=== PATIENT | male | born 1970 | race Caucasian/White ===

== ENCOUNTER → 2023-05-06 09:27 | Outpatient (CLI) | payer BC, SELFPAY ==
[2023-05-06 10:55] LABS: Hematocrit 42.8 % (41-53); Hemoglobin 14.4 g/dL (13.5-17.5); Mean Corpuscular HGB Conc 33.8 % (30-36); Mean Corpuscular Hemoglobin 29.4 PG (26-34); Mean Corpuscular Volume 87.1 fL (80-100); Platelet Count 280 X10^3/uL (150-400); Red Blood Cell Count 4.91 X10^6/uL (4.5-5.9); Red Cell Distribution Width 14.2 % (11.6-14.8); White Blood Cell Count 5.5 X10^3/uL (4.5-11.0)
[2023-05-06 11:42] LABS: Luteinizing Hormone 1.43 mIU/mL
[2023-05-06 11:55] LABS: Prostate Specific Antigen Scrn 1.28 ng/mL (0.1-4.0)
[2023-05-06 11:57] LABS: Testosterone 434 ng/dL (71.8-623)
[2023-05-11 15:43] LABS: Estriol 0.1 ng/mL (Not Estab.)
== END ==
PROVIDERS: PCP Registered Nurse; Referring Provider Nurse Practitioner Adult Health; Visit Provider Nurse Practitioner Adult Health
DX: E29.1 Testicular hypofunction (principal); R53.83 Other fatigue
CPT/HCPCS: 36415; 82677; 83002; 84403; 85027; G0103

== ENCOUNTER → 2023-07-31 14:48 | Outpatient (CLI) | payer BC, SELFPAY ==
--- NOTE | 2023-07-31 | DI.RAD.S_ITS ---
PROCEDURE: XR CHEST 2V INDICATIONS: acute cough TECHNIQUE: 2 views of the chest were acquired. COMPARISON: None. FINDINGS: Surgical changes and devices: None. Lungs and pleura: Lungs are clear. No pleural effusions or pneumothorax. Mediastinum: Mediastinal contours are normal. Heart size is normal. Bones and chest wall: No suspicious bony abnormalities. Soft tissues appear unremarkable. IMPRESSION: No acute cardiopulmonary process. Dictated by: Rojas Shell M.D. on 07/31/2023 at 17:07 Approved by: Rojas Shell M.D. on 07/31/2023 at 17:08
== END ==
PROVIDERS: PCP Registered Nurse; Referring Provider Registered Nurse; Visit Provider Registered Nurse
DX: R05.1 Acute cough (principal)
CPT/HCPCS: 71046

== ENCOUNTER 2023-08-03 16:04 | Emergency (ER) | payer BC, SELFPAY ==
[2023-08-03] VITALS (20 sets, daily range): BP systolic 139–195; BP diastolic 67–98; PULSE 81–109; RESP 13–30; TEMP 36.4; O2SAT 95–98
--- NOTE | 2023-08-03 16:11 | DI.CT.S_ITS ---
PROCEDURE: CT HEAD/BRAIN WO CON INDICATIONS: altered mental status, found on floor TECHNIQUE: Noncontrast 4.5 mm thick angled axial sections acquired from the foramen magnum to the vertex, with coronal and sagittal reformats. For radiation dose reduction, the following was used: automated exposure control, adjustment of mA and/or kV according to patient size. COMPARISON: [facility], CT, CT CERVICAL SPINE WO CON, 08/03/2023, 16:28. FINDINGS: Image quality: Diagnostic. CSF spaces: Basal cisterns are patent. No extra-axial fluid collections. Ventricles are normal in size and shape. Brain: No midline shift. No intracranial masses or hemorrhage. Viveros-white matter interface is normal. Skull and face: Calvarium and visualized facial bones are intact, without suspicious lesions. Sinuses: Visualized sinuses demonstrates minimal fluid within the maxillary sinuses.. IMPRESSION: No acute intracranial pathology. Dictated by: Sri Jimenes M.D. on 08/03/2023 at 17:01 Approved by: Sri Jimenes M.D. on 08/03/2023 at 17:02
--- NOTE | 2023-08-03 16:12 | DI.CT.S_ITS ---
PROCEDURE: CT CERVICAL SPINE WO CON INDICATIONS: altered mental status, found on floor TECHNIQUE: Noncontrast 3 mm thick sections acquired from the skull base to the T4 level. Sagittal and coronal reformats were then constructed. For radiation dose reduction, the following was used: automated exposure control, adjustment of mA and/or kV according to patient size. COMPARISON: None. FINDINGS: Image quality: Excellent. Bones: No fractures or dislocations. Visualized superior ribs are intact. There is reversal cervical curvature with apex at C5-6. Multilevel moderate to severe disc space narrowing most severe at C5-6. Soft tissues: Prevertebral soft tissues are normal in thickness. No paravertebral hematomas. No apical pneumothoraces. IMPRESSION: Multilevel degenerative changes without visualized fracture. Dictated by: Sri Jimenes M.D. on 08/03/2023 at 17:02 Approved by: Sri Jimenes M.D. on 08/03/2023 at 17:03
[2023-08-03 16:27] LABS: Add Manual Diff / Slide Review NO; Basophils Absolute Auto 100 /uL (0-100); Basophils Percent Auto 0.6 % (0-2); Eosinophils Absolute Auto 100 /uL (0-450); Eosinophils Percent Auto 1.5 % (2-4); Hematocrit 44.5 % (41-53); Hemoglobin 15.1 g/dL (13.5-17.5); Lymphocytes Absolute Auto 2600 /uL (1100-4500); Lymphocytes Percent Auto 31.5 % (25-40); Mean Corpuscular Hemoglobin 29.5 PG (26-34); Mean Corpuscular Volume 86.8 fL (80-100); Monocytes Absolute Auto 500 /uL (0-900); Monocytes Percent Auto 5.8 % (3-14); Neutrophils Absolute Auto 4900 /uL (1500-7000); Neutrophils Percent Auto 60.6 % (50-75); Platelet Count 372 X10^3/uL (150-400); Red Blood Cell Count 5.13 X10^6/uL (4.5-5.9); Red Cell Distribution Width 13.6 % (11.6-14.8); White Blood Cell Count 8.1 X10^3/uL (4.5-11.0)
--- NOTE | 2023-08-03 16:27 | PC.NURSE ---
Patient's requested to not give the patient a CT at this time. The expressed that the patient be allowed to wait for a little bit so that he doesn't freak out
[2023-08-03 16:28] LABS: Prothrombin Time 10.9 SECONDS (9.4-12.5)
[2023-08-03 16:30] LABS: PTT Partial Thromboplastin Tim 30 SECONDS (25.1-36.5)
--- NOTE | 2023-08-03 16:30 | PC.NURSE ---
patient is on a therapy program being seen by a provider for. He took medication for the last round of his 2 course of treatment. He told his that this was the last time he was taking it and would not be taking it after this. The states that he has never had a bad reaction to this medication. She could not state how much the patient took.
[2023-08-03 16:34] LABS: Acetaminophen < 10 ug/mL (10-30); Alanine Aminotransferase 25 IU/L (<50); Albumin 4.8 g/dL (3.5-5.0); Albumin Globulin Ratio 1.2 (1.0-2.8); Alkaline Phosphatase 75 U/L (38-126); Aspartate Aminotransferase 32 IU/L (17-59); BUN Creatinine Ratio 17.6 (6-22); Bilirubin Total 0.5 mg/dL (0.2-1.3); Blood Urea Nitrogen 19 mg/dL (9-20); Calcium 9.4 mg/dL (8.4-10.2); Carbon Dioxide 22 mmol/L (22-32); Chloride 106 mmol/L (98-107); Estimated Glomerular Filt Rate > 60 mL/min (>60); Ethanol (ETOH) < 10 mg/dL; Globulin 3.9 g/dL (1.7-4.1); Glucose 116 mg/dL (70-100); HEMOLYSIS 35 (0-50); Lactate (Lactic Acid) 3.5 mmol/L (0.7-2.1); Potassium 3.7 mmol/L (3.4-5.1); Salicylate < 1.0 mg/dL (<20); Sodium 141 mmol/L (137-145); Total Protein 8.7 g/dL (6.3-8.2)
--- NOTE | 2023-08-03 16:34 | PC.NURSE ---
Called Poison Control: Discussed case. they recommend beyond what is already ordered: CK/isoenzymes. they state effects = Sedation, resp depression, restlessness, tachycardia, anxiety, hallucinations, hyertonicity. Can be hyertensive followed by hypotensive. No ekg changes. Treat symptomatically but encouraged benzodiazepines for above. No specific cardiac, hepatic or renal toxicity. Peak plasma concentrations are 120 min. Expect symptoms for at least that duration. Suggest watching until baseline mental status.
[2023-08-03 16:50] LABS: Prolactin 29.5 ng/mL (3.7-17.9)
--- NOTE | 2023-08-03 16:57 | PC.NURSE ---
patient's declined blood draw and asked to talk to the doctor before doing any blood work.
[2023-08-03 17:04] LABS: Thyroid Stimulating Hormone 2.13 uIU/mL (0.47-4.68)
--- NOTE | 2023-08-03 17:11 | ED.AMS ---
HPI - Altered Mental Status General Chief Complaint: Altered Mental Status Stated Complaint: toxicology Time Seen by Provider: 08/03/23 17:02 Source: EMS Mode of arrival: EMS Limitations: no limitations History of Present Illness HPI narrative: 52-year-old male with history of depression who has been taking ketamine orally over the past 6 weeks. states they have been increasing his dose recently she states he seemed a little off the last 2 or 3 days after dosing but today came home from [facility] and found patient on the floor crying, alert but not responding or talking. She states he seems to be coming more talkative as time goes by. She called EMS who states glucose and vital signs were appropriate and patient was transported here. Patient make some nonsensical statements does appear to be under the influence of ketamine currently. Denies any suicidal or homicidal ideation. After talking to patient he is taking 200 mg ketamine tablets and he believes he took 3 from our conversation. Patient is not on any other prescription medications. He has been taking this from [facility] and under the direction of his primary care physician. He had recently told his it seems to be very helpful and he thinks that he will be able to stop taking it soon. No known drug allergies. No reported tobacco, no regular alcohol or recreational drugs reported. Related Data Allergies Allergy/AdvReac Type Severity Reaction Status Date / Time No Known Drug Allergies Allergy Verified 08/03/23 16:38 Review of Systems Review of Systems ROS Unobtainable: All systems reviewed & are unremarkable except as noted in HPI and below Exam Narrative Exam Narrative: GENERAL: Alert and oriented to self, patient makes some nonsensical statements but can tell me he is feeling better. HEENT: Head normocephalic, atraumatic, nystagmus, EOMI, pupils reactive, face symmetric, moist mucous membranes NECK: Supple, full range of motion CARDIOVASCULAR: Regular rate and rhythm without murmurs, rubs or gallops. RESPIRATORY: Breath sounds equal bilaterally, no wheezes rales or rhonchi. ABDOMEN: Soft, nontender. Normoactive bowel sounds all 4 quadrants. No guarding or rebound, rigidity, no mass : No CVA tenderness EXTREMITIES: Normal range of motion, no clubbing or edema. Neurovascularly intact NEUROLOGICAL: Cranial nerves II through XII grossly intact. Full range of motion. Moving all extremities SKIN: Warm, dry, no petechiae, no rashes or lesions. PSYCH: No homicidal or suicidal ideation. Initial Vital Signs Initial Vital Signs: Vital Signs Temperature 97.6 F 08/03/23 16:08 Pulse Rate 109 H 08/03/23 16:08 Respiratory Rate 17 08/03/23 16:08 Blood Pressure 187/88 H 08/03/23 16:08 Pulse Oximetry 98 08/03/23 16:08 Oxygen Delivery Method Room Air 08/03/23 16:08 Course Orders Ordered: Discontinued Medications Sodium Chloride (Normal Saline 0.9%) 1,000 mls @ 1,000 mls/hr IV BOLUS ONE Stop: 08/03/23 18:25 Last Admin: 08/03/23 17:42 Dose: Not Given Documented By: ANGELITO Vital Signs Vital signs: Vital Signs - 8 hr 08/03/23 16:08 08/03/23 16:15 08/03/23 16:17 Temperature 97.6 F Pulse Rate 109 H 92 H Respiratory Rate 17 17 Blood Pressure 187/88 H 178/84 H Pulse Oximetry 98 96 Oxygen Delivery Method Room Air 08/03/23 16:17 08/03/23 16:20 08/03/23 16:30 Temperature Pulse Rate 99 H 96 H 107 H Respiratory Rate 20 20 23 Blood Pressure Pulse Oximetry 98 96 96 Oxygen Delivery Method 08/03/23 16:40 08/03/23 16:49 08/03/23 16:49 Temperature Pulse Rate 99 H 96 H Respiratory Rate 27 H 25 H Blood Pressure 195/98 H Pulse Oximetry 96 97 Oxygen Delivery Method 08/03/23 16:50 08/03/23 17:00 08/03/23 17:00 Temperature Pulse Rate 94 H 91 H Respiratory Rate 23 16 Blood Pressure 155/67 H Pulse Oximetry 97 97 Oxygen Delivery Method 08/03/23 17:10 08/03/23 17:20 08/03/23 17:30 Temperature Pulse Rate 89 92 H Respiratory Rate 20 14 Blood Pressure 156/91 H Pulse Oximetry 95 97 Oxygen Delivery Method 08/03/23 17:30 Temperature Pulse Rate 85 Respiratory Rate 15 Blood Pressure Pulse Oximetry 96 Oxygen Delivery Method Room Air MDM - Altered Mental Status Lab Data 08/03/23 16:07 08/03/23 16:07 Labs: Lab Results 08/03/23 Range/Units 16:07 WBC 8.1 (4.5-11.0) X10^3/uL RBC 5.13 (4.5-5.9) X10^6/uL Hgb 15.1 (13.5-17.5) g/dL Hct 44.5 (41-53) % MCV 86.8 (80-100) fL MCH 29.5 (26-34) PG MCHC 34.0 (30-36) % RDW 13.6 (11.6-14.8) % Plt Count 372 (150-400) X10^3/uL Neut % (Auto) 60.6 (50-75) % Lymph % (Auto) 31.5 (25-40) % Anderson % (Auto) 5.8 (3-14) % Eos % (Auto) 1.5 L (2-4) % Baso % (Auto) 0.6 (0-2) % Neut # (Auto) 4900 (0248-6282) /uL Lymph # (Auto) 2600 (6987-6927) /uL Anderson # (Auto) 500 (0-900) /uL Eos # (Auto) 100 (0-450) /uL Baso # (Auto) 100 (0-100) /uL PT 10.9 (9.4-12.5) SECONDS INR 1.0 (0.9-1.3) APTT 30 (25.1-36.5) SECONDS Sodium 141 (137-145) mmol/L Potassium 3.7 (3.4-5.1) mmol/L Chloride 106 (98-107) mmol/L Carbon Dioxide 22 (22-32) mmol/L BUN 19 (9-20) mg/dL Creatinine 1.08 (0.66-1.25) mg/dL Estimated GFR > 60 (>60) mL/min BUN/Creatinine Ratio 17.6 (6-22) Glucose 116 H (70-100) mg/dL Serum Osmolality Cancelled Lactate 3.5 H (0.7-2.1) mmol/L Calcium 9.4 (8.4-10.2) mg/dL Total Bilirubin 0.5 (0.2-1.3) mg/dL AST 32 (17-59) IU/L ALT 25 (<50) IU/L Alkaline Phosphatase 75 (38-126) U/L Total Protein 8.7 H (6.3-8.2) g/dL Albumin 4.8 (3.5-5.0) g/dL Globulin 3.9 (1.7-4.1) g/dL Albumin/Globulin Ratio 1.2 (1.0-2.8) TSH 2.13 (0.47-4.68) uIU/mL Prolactin 29.5 H (3.7-17.9) ng/mL Salicylates < 1.0 (<20) mg/dL Acetaminophen < 10 (10-30) ug/mL Ethyl Alcohol < 10 ( - 10) mg/dL MDM Narrative Medical decision making narrative: 52-year-old male with possible overdose of ketamine. Patient has been taking it for depression, he clinically appears to be under the influence of ketamine currently. He also per his seems to be improving over time. Possible overdose versus seizure versus infection or other source. Poison control was contacted half later about 120 minutes. Suspect 4-5 hours of observation or until clinically sober. Patient is slightly tachycardic little bit hypertensive, no respiratory distress. Patient does have some mild nystagmus consistent with ketamine dosing. Patient was found on the floor unclear if he had any injuries head and C-spine were obtained of the CT these are negative for acute process. There is some degenerative changes on CT C-spine. CBC is negative, coags negative, CMP is appropriate glucose is 116 lactate 3.5, LFTs are overall negative TSH is 2.13 prolactin is elevated. Salicylate, Tylenol and ETOH are negative. Patient and are very reluctant to have IV fluids. Patient can orally hydrate. Has had significant improvement and would like to return home. Discharge Plan Departure Patient Disposition: Home Clinical Impression: Overdose Activity Restrictions/Additional Instructions: Follow up with your physician. I would not take your ketamine until you have talked with your physician. You appear to have overdosed on your ketamine today. Make sure to drink plenty of fluids. If you're feeling suicidal or having suicidal thoughts, contact the suicide hotline (this is also an option for self referral): . Please return for altered mental status, persistent vomiting, difficulty with movement, fevers or other new or concerning changes. Referrals: Yumi London ARNP [Primary Care Provider] - Stand Alone Forms: Patient Portal/API
[2023-08-03 18:04] LABS: Reflexed Lactate in 2 Hours Y
--- NOTE | 2023-08-03 18:32 | PC.NURSE ---
The patient and are reluctant to give blood samples because the feels like the patient is fine. She wants to know why the doctor wants urine, blood samples. The patient is wanting to go home and continue to trip at home. Provider is aware of the patient and the 's requests to go home. They have been instructed to wait until the patient's mentation returns to his baseline.
--- NOTE | 2023-08-03 18:55 | PC.NURSE ---
Patient refused to give a urine sample. He stated that he knows that it will show ketamine in his system. Provider aware.
[2023-08-13 02:36] LABS: CK-BB 0 % (0); CK-MB 0 % (0-3); CK-MM 100 % (97-100); Macro Type 1 0 % (Not Observed); Macro Type 2 0 % (Not Observed)
== END 2023-08-03 19:12 | disposition home or self-care (01) ==
PROVIDERS: Emergency Medicine; Emergency Provider Emergency Medicine; PCP Registered Nurse
DX: T41.291A Poisoning by other general anesthetics, accidental (unintentional), initial encounter (principal)
CPT/HCPCS: 70450; 72125; 80053; 80320; 80329; 82550; 82553; 83605; 84146; 84443; 85025; 85610; 85730; 99283; 99284; G0480

== ENCOUNTER → 2023-10-12 17:23 | Outpatient (CLI) | payer BC, SELFPAY ==
[2023-10-12 17:44] LABS: Hematocrit 42.5 % (41-53); Hemoglobin 14.5 g/dL (13.5-17.5); Mean Corpuscular Hemoglobin 28.9 PG (26-34); Mean Corpuscular Volume 84.9 fL (80-100); Platelet Count 314 X10^3/uL (150-400); Red Blood Cell Count 5.01 X10^6/uL (4.5-5.9); Red Cell Distribution Width 13.7 % (11.6-14.8); White Blood Cell Count 10.4 X10^3/uL (4.5-11.0)
[2023-10-12 18:31] LABS: Prostate Specific Antigen 1.36 ng/mL (0.10-4.00)
[2023-10-12 18:34] LABS: Testosterone 306 ng/dL (71.8-623)
[2023-10-12 18:41] LABS: Luteinizing Hormone 2.95 mIU/mL
[2023-10-12 18:57] LABS: Estradiol, Total 54.7 pg/mL
== END ==
PROVIDERS: PCP Registered Nurse; Referring Provider Urology; Visit Provider Urology
DX: Z12.5 Encounter for screening for malignant neoplasm of prostate (principal); E29.1 Testicular hypofunction; R53.83 Other fatigue
CPT/HCPCS: 36415; 82670; 83002; 84153; 84403; 85027